=== PATIENT | female | born 1990 | race African-American/Black ===

== ENCOUNTER 2020-06-02 19:55 | Emergency (ER) | payer BC, MEDICAID, OTHER ==
[~2020-06-02] VITALS: Ht 154.9 cm; Wt 62.7 kg
[2020-06-02 19:55] VITALS: BP 150/90
[~2020-06-02 19:55] MED LIST: PSEU120T9 PO; [UNRECOGNIZED DRUG - CODE] PO
[2020-06-02] MEDS ORDERED: DEXAMETHASONE SOD PHOS 10 MG/ML VIAL. PO ONE (20:15)
[2020-06-02] MEDS ORDERED: METH4TAB2 PO (20:46)
--- NOTE | 2020-06-02 20:46 | PHYS DOC ---
Past History Past Medical History: No Pertinent History Past Surgical History: No Surgical History Smoking: Cigarettes, Less than 1pk/day Alcohol Use: None Drug Use: Marijuana Adult General Chief Complaint Chief Complaint: EARACHE/EAR PAIN [facility] HPI Patient is 89-year-old female presents to the emergency room complaining of throat pain that radiates into her left ear. She states the pain in her ear is mostly when she tries to swallow. This started this morning. She has been doing cough drops with some relief at home. She denies any cough, shortness of breath, fever, chills, sweats. She has painful swallowing. She is able to talk and swallow without difficulty. Review of Systems Review of Systems Complete ROS is negative unless otherwise documented in HPI Current Medications Current Medications Current Medications Medications (Trade) Dose Ordered Sig/Petros Start Time Stop Time Status Last Admin Dose Admin Dexamethasone Sodium Phosphate (Decadron) 10 mg 1X ONCE 06/02/20 20:15 06/02/20 20:19 DC 06/02/20 20:27 10 MG Allergies Allergies Allergies Coded Allergies Type Severity Reaction Last Updated Verified No Known Drug Allergies 05/14/15 No Physical Exam Physical Exam General: Awake, alert, NAD. Well Nourished, well hydrated. Cooperative HEENT: Atraumatic, EOMI, PERRL, airway patent, moist oral mucosa, bilateral tonsillar swelling with erythema Neck: Supple, trachea midline Respiratory: CTA bilaterally, normal effort, no wheezing/crackles CV: RRR, no murmur, cap refill <2 GI: Soft, nondistended, nontender, no masses MSK: No obvious deformities Skin: Warm, dry, intact Neuro: A&O x3, speech NL, sensory and motor grossly intact, no focal deficits Psych: Normal affect, normal mood, not suicidal or homicidal Current Patient Data Vital Signs Vital Signs Date Time Temp Pulse Resp B/P (MAP) Pulse Ox O2 Delivery O2 Flow Rate FiO2 06/02/20 19:55 98.6 86 18 150/90 (110) 100 EKG EKG [] Radiology/Procedures Radiology/Procedures [] Heart Score Risk Factors: Risk Factors: DM, Current or recent (<one month) smoker, HTN, HLP, family history of CAD, obesity. Risk Scores: Risk Factors: DM, Current or recent (<one month) smoker, HTN, HLP, family history of CAD, obesity. Course & Med Decision Making Course & Med Decision Making Pertinent Labs and Imaging studies reviewed. (See chart for details) Patient is 30-year-old female presents to the emergency room with tonsillitis. Patient has bilateral swelling of the tonsils. Bilateral tympanic membranes are normal. Strep swab was done and is negative. Patient will be placed on steroids. Patient's test results and vitals while in the ED were fully reviewed and discussed with the patient. Patient is stable and at this time does not need admission to the hospital. We have discussed strict return precautions and the importance of following up with their Primary Care Physician. Patient stated understanding and was given an opportunity to ask any questions. Patient is in agreement with plan. Dragon Disclaimer Dragon Disclaimer This electronic medical record was generated, in whole or in part, using a voice recognition dictation system. Departure Departure: Impression: Primary Impression: Tonsillitis Disposition: 01 DC HOME SELF CARE/HOMELESS Condition: STABLE Referrals: SARITA ROLLE DO (PCP) Patient Instructions: Tonsillitis Scripts Methylprednisolone (MEDROL) 4 Mg Tab.ds.pk 1 PKG PO UD for tonsillitis, #1 PKG Prov: RIGO POOLE MD 06/02/20 RIGO POOLE MD Jun 02, 2020 20:46
== END 2020-06-02 20:50 | disposition home or self-care (01) ==
LOC: ER 19:55
DX: J03.90 Acute tonsillitis, unspecified (principal); F17.210 Nicotine dependence, cigarettes, uncomplicated; F12.10 Cannabis abuse, uncomplicated
CPT/HCPCS: 87070; 87880; 99283; J1100

== ENCOUNTER 2021-07-09 12:43 | Emergency (ER) | payer BC, MEDICAID ==
[~2021-07-09] VITALS: Ht 154.9 cm; Wt 62.7 kg
[~2021-07-09 12:43] MED LIST changes: +METH4TAB2 PO
[2021-07-09] MEDS ORDERED: LABETALOL 20 MG/4 ML DISP.SYRIN. IVP ONE (14:30)
--- NOTE | 2021-07-09 14:41 | PHYS DOC ---
Past History Past Medical History: No Pertinent History Past Surgical History: No Surgical History Smoking: Cigarettes, Less than 1pk/day Alcohol Use: None Drug Use: Marijuana General Adult EDM: Chief Complaint: POST-OP PROBLEM HPI: HPI: 31-year-old female presents with hypertension . Patient did not have elevated blood pressure except for the very end of her . She delivered shortly after they discovered her elevated blood pressure. She did not have elevated blood pressure on discharge from the hospital 1 week ago today. Today, she has swelling of the bilateral lower extremities and her OB sent her to the hospital to evaluate her blood pressure. On arrival it is elevated. Patient denies any other complaints this time. Review of Systems: Review of Systems: Constitutional: Denies fever or chills Eyes: Denies change in visual acuity HENT: Denies nasal congestion or sore throat Respiratory: Denies cough or shortness of breath Cardiovascular: Bilateral lower extremity edema GI: Denies abdominal pain, nausea, vomiting, bloody stools or diarrhea : Denies dysuria Musculoskeletal: Denies back pain or joint pain Integument: Denies rash Neurologic: Denies headache, focal weakness or sensory changes Endocrine: Denies polyuria or polydipsia Lymphatic: Denies swollen glands Psychiatric: Denies depression or anxiety Current Medications: Current Meds: Current Medications Medications (Trade) Dose Ordered Sig/Petros Start Time Stop Time Status Last Admin Dose Admin Labetalol HCl (Normodyne) 10 mg 1X ONCE 07/09/21 14:30 07/09/21 14:34 DC Allergies: Allergies: Allergies Coded Allergies Type Severity Reaction Last Updated Verified No Known Drug Allergies 05/14/15 No Physical Exam: PE: Constitutional: Well developed, well nourished, no acute distress, non-toxic appearance. [] HENT: Normocephalic, atraumatic, bilateral external ears normal, oropharynx moist, no oral exudates, nose normal. [] Eyes: PERRLA, EOMI, conjunctiva normal, no discharge. [] Neck: Normal range of motion, no tenderness, supple, no stridor. [] Cardiovascular: Heart rate regular rhythm, no murmur [] Lungs & Thorax: Bilateral breath sounds clear to auscultation [] Abdomen: Bowel sounds normal, soft, no tenderness, no masses, no pulsatile masses. [] Skin: Warm, dry, no erythema, no rash. [] Back: No tenderness, no CVA tenderness. [] Extremities: No tenderness, no cyanosis, no clubbing, ROM intact, 2+ nonpitting edema of the bilateral lower extremities. [] Neurologic: Alert and oriented X 3, normal motor function, normal sensory function, no focal deficits noted. [] Psychologic: Affect normal, judgement normal, mood normal. [] EKG: EKG: [] Radiology/Procedures: Radiology/Procedures: [] Heart Score: C/O Chest Pain: N/A Risk Factors: Risk Factors: DM, Current or recent (<one month) smoker, HTN, HLP, family history of CAD, obesity. Risk Scores: Score 0 - 3: 2.5% MACE over next 6 weeks - Discharge Home Score 4 - 6: 20.3% MACE over next 6 weeks - Admit for Clinical Observation Score 7 - 10: 72.7% MACE over next 6 weeks - Early Invasive Strategies Course & Med Decision Making: Course & Med Decision Making Pertinent Labs and Imaging studies reviewed. (See chart for details) The patient's blood pressure was elevated. She was given hydralazine 10 mg IV. This improved her blood pressure significantly. I also gave her 40 mg of Lasix IV. I will discharge her with 4 additional days of Lasix 20 mg daily and nifedipine extended release as oral hydralazine is not recommended as a single treatment. She will follow-up with her OB no later than Sunday. She is stable for discharge at this time. [] Jessica Disclaimer: Jessica Disclaimer: This electronic medical record was generated, in whole or in part, using a voice recognition dictation system. Departure Departure: Impression: Primary Impression: hypertension Disposition: HOME / SELF CARE / HOMELESS Condition: STABLE Referrals: PCP,NO (PCP) Patient Instructions: Hypertension, [id number] Scripts Nifedipine (NIFEDIPINE ER) 30 Mg Tab.er.24 1 TAB PO DAILY for hypertension for 14 Days, #14 TAB 1 Refill Prov: BROOKLYNN DELACRUZ DO 07/09/21 BROOKLYNN DELACRUZ DO Jul 09, 2021 14:41
[2021-07-09] MEDS: hydrALAZINE 20 MG/ML VIAL. IV ONE ×2 (15:26→15:36)
[2021-07-09 15:29] LABS: BASO # 0.1 x10^3/uL (0.0-0.2); BASO % 1 % (0-3); EOS # 0.1 x10^3/uL (0.0-0.7); EOS % 1 % (0-3); HEMOGLOBIN 12.6 g/dL (12.0-15.5); LYMPH # 4.4 x10^3/uL (1.0-4.8); LYMPH % 39 % (24-48); MEAN CORPUSCULAR HEMOGLOBIN 30 pg (25-35); MEAN CORPUSCULAR HGB CONC 33 g/dL (31-37); MEAN CORPUSCULAR VOLUME 92 fL (79-100); MONO # 0.8 x10^3/uL (0.0-1.1); MONO % 8 % (0-9); NEUT # 5.8 x10^3uL (1.8-7.7); NEUT % 51 % (31-73); PLATELET COUNT 289 x10^3/uL (140-400); RED BLOOD COUNT 4.13 x10^6/uL (3.50-5.40); RED CELL DISTRIBUTION WIDTH 14.3 % (11.5-14.5); WHITE BLOOD COUNT 11.3 x10^3/uL (4.0-11.0)
[2021-07-09] MEDS ORDERED: FUROSEMIDE 40 MG/4 ML VIAL IVP ONE (15:30)
[2021-07-09] MEDS ORDERED: hydrALAZINE 20 MG/ML VIAL. IV ONE (15:30)
[2021-07-09 15:37] LABS: CALCIUM 8.4 mg/dL (8.5-10.1); CREATININE 0.7 mg/dL (0.6-1.0); GFR 117.3; POTASSIUM 3.9 mmol/L (3.5-5.1)
[2021-07-09 15:41] LABS: BACTERIA,URINE 0 /HPF (0-FEW); BILIRUBIN,URINE NEG (NEG); CLARITY,URINE CLEAR; COLOR,URINE YELLOW; GLUCOSE,URINE NEG (NEG); NITRITE,URINE NEG (NEG); RBC,URINE 0 /HPF (0-2); SQUAMOUS EPITHELIAL CELL,UR OCC /LPF; UROBILINOGEN,URINE 0.2 mg/dL (0.2 mg/dL); WBC,URINE 0 /HPF (0-4)
[2021-07-09 15:43] LABS: ALBUMIN 2.8 g/dL (3.4-5.0); ALBUMIN/GLOBULIN RATIO 0.7 (1.0-1.7); TOTAL BILIRUBIN 0.2 mg/dL (0.2-1.0)
[2021-07-09] MEDS ORDERED: NIFE30TA95 PO (17:01)
[2021-07-09] MEDS ORDERED: FURO-69 PO (17:02)
[2021-07-09 17:15] VITALS: BP 145/86
== END 2021-07-09 17:16 | disposition home or self-care (01) ==
LOC: ER 12:43
DX: O16.5 Unspecified maternal hypertension, complicating the puerperium (principal); F17.210 Nicotine dependence, cigarettes, uncomplicated
CPT/HCPCS: 36415; 80053; 81001; 85025; 96374; 96375; 99285; J0360; J1940

== ENCOUNTER 2021-08-04 22:17 | Emergency (ER) | payer BC, MEDICAID ==
[~2021-08-04] VITALS: Ht 154.9 cm; Wt 68.0 kg
[~2021-08-04 22:17] MED LIST changes: +FURO-69 PO; +NIFE30TA95 PO
[2021-08-04 22:28] VITALS: BP 121/90
[2021-08-04] MEDS ORDERED: IBUPROFEN 800 MG TABLET. PO ONE (23:00)
[2021-08-04] MEDS ORDERED: CEPHALEXIN 250 MG CAPSULE PO ONE (23:00)
[2021-08-05] MEDS ORDERED: ENOXAPARIN ** NOTE DOSE ** SYRINGE SQ ONE (00:30)
--- NOTE | 2021-08-05 00:32 | PHYS DOC ---
Past History Past Medical History: No Pertinent History Past Surgical History: No Surgical History Smoking: Cigarettes, Less than 1pk/day Alcohol Use: Occasionally Drug Use: Marijuana Adult General Chief Complaint Chief Complaint: UPPER EXTREMITY SWELLING HPI HPI The patient is a 31-year-old female who is otherwise healthy. She presents for evaluation of redness, mild swelling and discomfort affecting the dorsal aspect of her right hand radiating down over the dorsal and volar right distal forearm. Symptoms had onset today when she woke up from sleep. Symptoms occur in the setting of a tiny burn to the dorsal right hand sustained about a week ago; this has been healing well until today. No associated fevers, vomiting, weakness, numbness or tingling to the affected distal right arm or hand. Patient is alert and pleasantly and appropriately interactive and in no acute distress with appropriate vital signs upon initial evaluation here in the emergency department. Review of Systems Review of Systems A 12 point review of systems was completed and was negative except where noted in HPI above. Current Medications Current Medications Current Medications Medications (Trade) Dose Ordered Sig/Petros Start Time Stop Time Status Last Admin Dose Admin Cephalexin HCl (Keflex) 500 mg 1X ONCE 08/04/21 23:00 08/04/21 23:01 DC 08/04/21 23:15 500 MG Ibuprofen (Motrin) 800 mg 1X ONCE 08/04/21 23:00 08/04/21 23:01 DC 08/04/21 23:15 800 MG Allergies Allergies Allergies Coded Allergies Type Severity Reaction Last Updated Verified No Known Drug Allergies 08/04/21 No Physical Exam Physical Exam 31-year-old female appearing nontoxic and in no acute distress. Head is normocephalic and atraumatic. Neck is supple and nontender. Oropharynx is moist. Lungs are clear to auscultation at all stations. There is a normal S1 and S2 without rubs or gallops and capillary refill is appropriate, less than 2 seconds globally. Abdomen is soft, nontender and nondistended. Skin is warm and dry without cyanosis, clubbing or edema. Psychiatrically, the patient demonstrates appropriate mood and affect and is alert. Evaluation of the right upper extremity is remarkable for mild erythema, warmth and tenderness to palpation over the dorsal right hand and the volar and dorsal aspects of the distal right forearm. Examination is most consistent with a mild cellulitis. There is a transversely oriented approximately 2 cm linear healing burn to the dorsal right hand which is likely the source for infection. No joint irritability to any joint of the right upper extremity. Right upper extremity is neurovascularly intact distally with strength 5 out of 5, sensation intact to light touch in all nerve distributions, radial pulse 2+, capillary refill less than 2 seconds, hand warm and well-perfused. No dependent peripheral edema distally. Current Patient Data Vital Signs Vital Signs Date Time Temp Pulse Resp B/P (MAP) Pulse Ox O2 Delivery O2 Flow Rate FiO2 08/04/21 22:28 97.0 100 20 121/90 (100) 99 Lab Results Laboratory Tests Test 08/04/21 23:09 D-Dimer (Luiza) 1.65 mg/L (0.00-0.50) H EKG EKG [] Radiology/Procedures Radiology/Procedures [] Heart Score C/O Chest Pain: No Risk Factors: Risk Factors: DM, Current or recent (<one month) smoker, HTN, HLP, family history of CAD, obesity. Risk Scores: Risk Factors: DM, Current or recent (<one month) smoker, HTN, HLP, family history of CAD, obesity. Course & Med Decision Making Course & Med Decision Making History and examination are most compatible with a mild right upper extremity cellulitis, probably with onset due to a break in the skin surface from a healing burn to the patient's dorsal right hand. Tetanus is up-to-date per patient. Keflex and ibuprofen given. D-dimer elevated, probably because of acute infection but cannot fully exclude the possibility of DVT so will give a dose of Lovenox and have the patient return tomorrow during the daytime for a right upper extremity ultrasound. We will prescribe Keflex and ibuprofen. Patient understands that if he feels worse instead of better or develops other new symptoms of concern that she should return to the emergency department immediately for reevaluation. All questions are answered. Dragon Disclaimer Dragon Disclaimer This electronic medical record was generated, in whole or in part, using a voice recognition dictation system. Departure Departure: Impression: Primary Impression: Cellulitis of right arm Disposition: HOME / SELF CARE / HOMELESS Condition: IMPROVED Patient Instructions: Cellulitis Additional Instructions: Return to the emergency department tomorrow during business hours later today (08/05/2021) to have an ultrasound of your right arm done to rule out a blood clot. It is most likely that you have a mild soft tissue infection called cellulitis affecting your right hand and forearm. We have prescribed an antibiotic called Keflex; take every 6 hours for the next 10 days to treat the infection. Take two 325mg Tylenol pills every 6 hours as needed for discomfort. Return to the emergency department right away for worsening symptoms of any kind or with any other new symptoms of concern. Scripts Acetaminophen (TYLENOL) 325 Mg Tablet 650 MG PO QID for pain, #50 TAB Prov: SHWETA MENDOZA MD 08/05/21 Cephalexin (KEFLEX) 500 Mg Capsule 1 CAP PO QID for cellulitis for 10 Days, #40 CAP Prov: SHWETA MENDOZA MD 08/05/21 SHWETA MENDOZA MD Aug 05, 2021 00:32
[2021-08-05] MEDS ORDERED: ACET325T9 PO (00:44)
[2021-08-05] MEDS ORDERED: CEPH500C PO (00:44)
== END 2021-08-05 00:49 | disposition home or self-care (01) ==
LOC: ER 22:17
DX: L03.113 Cellulitis of right upper limb (principal); F17.210 Nicotine dependence, cigarettes, uncomplicated
CPT/HCPCS: 36415; 85379; 96372; 99283; J1650

== ENCOUNTER 2021-08-05 15:04 | Emergency (ER) | payer BC, MEDICAID ==
[~2021-08-05] VITALS: Ht 154.9 cm; Wt 68.0 kg
[~2021-08-05 15:04] MED LIST changes: +ACET325T9 PO; +CEPH500C PO
[2021-08-05 15:22] VITALS: BP 121/90
--- NOTE | 2021-08-05 15:49 | RAD ---
EXAM: Right upper extremity venous Doppler. HISTORY: Right upper extremity pain/swelling. COMPARISON: None. FINDINGS: Grayscale and Doppler analysis of the right upper extremity deep venous system was performe d with graded compression and augmentation. The internal jugular, subclavian, axillary, brachial, bas ilic, cephalic, radial and ulnar veins were assessed. There is no evidence of deep venous thrombosis. IMPRESSION: 1. No evidence of deep venous thrombosis. Electronically signed by: Anali Barba MD (08/05/2021 3:46 PM) [facility]
--- NOTE | 2021-08-05 16:07 | PHYS DOC ---
Past History Past Medical History: No Pertinent History Past Surgical History: No Surgical History Smoking: Cigarettes, Less than 1pk/day Alcohol Use: Occasionally Drug Use: Marijuana General Adult EDM: Chief Complaint: OTHER COMPLAINTS HPI: HPI: 31 yo F past medical history of " hypertension" (is currently 4 weeks /not breast-feeding), presents to the ED requesting a right upper extremity venous duplex ultrasound to evaluate for deep venous thrombosis. Pt was seen overnight in the ed and treated for cellulitis of the right forearm after patient stated burn to the dorsum of her right dominant hand (top of the oven when pulling out a cook). Patient was prescribed Keflex and Tylenol. Patient does not believe she was bit by any bugs. Has filled her antibiotic and taken 1 tablet. Reports vaccines are up-to-date including her tetanus. No known history of MRSA-Is not immunocompromised and does not work in healthcare. Is no longer on antihypertensives. EMR was reviewed and patient had an elevated D- dimer of 1.65-able to PERC out due to heart rate of 100. Review of Systems: Review of Systems: Constitutional: Denies fever or chills Eyes: Denies change in visual acuity HENT: Denies nasal congestion or sore throat Respiratory: Denies cough or shortness of breath Cardiovascular: Denies chest pain or edema GI: Denies nausea or vomiting : Denies dysuria or vaginal bleeding Musculoskeletal: Denies back pain or joint pain Integument: Denies blistering lesions or diaphoresis Neurologic: Denies focal weakness or sensory changes Psychiatric: Denies depression or anxiety Allergies: Allergies: Allergies Coded Allergies Type Severity Reaction Last Updated Verified No Known Drug Allergies 08/04/21 No Physical Exam: PE: Constitutional: Well developed, well nourished, no acute distress, non-toxic appearance. HENT: Normocephalic, atraumatic, Eyes: EOMI, conjunctiva normal, no discharge. Neck: Normal range of motion, supple, Cardiovascular: S1/2 present, regular rhythm Lungs & Thorax: Speaking in full sentences, bilateral equal chest rise, no tachypnea or increased work of breathing Skin: Warm, dry, 2 cm scar over distal dorsal hand with uniform erythema that extends from the scar of the burn over the dorsum of the hand into the wrist and distal arm-rash is not circumferential but is warm, equal radial pulses, rashes that extends to ventral aspect of hand, no flexor posturing digits-digits with no associated rash Extremities: No tenderness, no cyanosis, patient with full range of motion right wrist and hand Neurologic: Alert and oriented X 3, normal motor function, normal sensory function, no focal deficits noted. [] Psychologic: Affect normal, judgement normal, mood normal. [] Current Patient Data: Vital Signs: Vital Signs Date Time Temp Pulse Resp B/P (MAP) Pulse Ox O2 Delivery O2 Flow Rate FiO2 08/05/21 15:22 98.2 80 16 121/90 (100) 98 EKG: EKG: [] Radiology/Procedures: Radiology/Procedures: IMAGING REPORT Signed PATIENT: MORENO AMAYA ACCOUNT: [id number] : 1990 LOCATION: ER AGE: 31 SEX: F EXAM STATUS: REG ER ORD. PHYSICIAN: TIN HOLLIS DO REASON: arm swelling PROCEDURE: VENOUS UPPER EXTREMITY RIGHT EXAM: Right upper extremity venous Doppler. HISTORY: Right upper extremity pain/swelling. COMPARISON: None. FINDINGS: Grayscale and Doppler analysis of the right upper extremity deep venous system was performed with graded compression and augmentation. The internal jugular, subclavian, axillary, brachial, basilic, cephalic, radial and ulnar veins were assessed. There is no evidence of deep venous thrombosis. IMPRESSION: 1. No evidence of deep venous thrombosis. Electronically signed by: Anali Barba MD (08/05/2021 3:46 PM) [facility] DICTATED AND SIGNED BY: ASHUTOSH BARBA MD DATE: 08/05/21 1546 CC: PCP,NO; TIN HOLLIS DO ~MTH0 0 Heart Score: C/O Chest Pain: No Risk Factors: Risk Factors: DM, Current or recent (<one month) smoker, HTN, HLP, family history of CAD, obesity. Risk Scores: Score 0 - 3: 2.5% MACE over next 6 weeks - Discharge Home Score 4 - 6: 20.3% MACE over next 6 weeks - Admit for Clinical Observation Score 7 - 10: 72.7% MACE over next 6 weeks - Early Invasive Strategies Course & Med Decision Making: Course & Med Decision Making Pertinent Labs and Imaging studies reviewed. (See chart for details) Concern for cellulitis of the right dorsal hand and wrist, compliant with Keflex. Patient reports rash has decreased in size from initial evaluation with Dr. Olivas. Patient full range of motion of right upper extremity. Reports her vaccines including tetanus are updated. Blood pressure is normal range. Ultrasound ordered due to elevated D-dimer. Ultrasound with no evidence of DVT which is consistent with patient's physical exam. Will discharge home with strict ED return precautions were given for worsening rash, fever or decreased range of motion. Encouraged urgent outpatient follow-up with PMD for reevaluation and routine care. Life-threatening processes were considered but are low suspicion at this time, given history, physical exam and ED workup. Pt was educated on all prescription medications and adverse effects. All patient's questions were answered and pt was stable at time of discharge. Life/limb-threatening differential includes but is not limited to, trauma (fracture, dislocation, laceration, compartment syndrome, tendon or ligament injury), neurovascular injury or deficitcva/tia, infection (osteomyelitis, abscess, cellulitis, septic arthritis, necrotizing fasciitis), deep vein thrombosis, renal/cardiac/liver disease, medication adverse effect, lymphedem a/anasarca, vascular insufficiency or malignancy, I have spoken with the patient and/or caregivers. I explained the patient's condition, diagnoses and treatment plan based on the information available to me at this time. I have answered the patient and/or caregiver's questions and addressed any concerns. The patient and/or caregivers have a good understanding of patient's diagnosis, condition and treatment plan as can be expected at this point. Vital signs have been stable. Patient's condition is stable and appropriate for discharge from the emergency department. Patient will pursue further outpatient evaluation with primary care physician or other designated or consulting physician as outlined in the discharge instructions. The patient and/or caregivers are agreeable to this plan of care and follow-up instructions have been explained in detail. The patient and/or caregivers have received these instructions in written form and have expressed an understanding of the discharge instructions. The patient and/or caregivers are aware that any significant change of condition or worsening of symptoms should prompt immediate return to this or the closest emergency department or call to 911. Jessica Disclaimer: Jessica Disclaimer: This electronic medical record was generated, in whole or in part, using a voice recognition dictation system. Departure Departure: Impression: Primary Impression: Cellulitis of right arm Disposition: HOME / SELF CARE / HOMELESS Condition: STABLE Referrals: PCP,NO (PCP) Follow-up with your primary care physician in 24 to 48 hours OR FOLLOW UP WITH FAMILY MEDICINE: [address] [place] [address] Patient Instructions: Cellulitis Additional Instructions: [facility] FOR [facility] E [facility]NAGEMENT WITHIN THE NEXT 7 DAYS Appointments may be made with Hitesh Acuña MD, Suraj Agarwal MD, Kwaku Johnson MD or Dina Quinn MD, by calling [phone] EMERGENCY DEPARTMENT GENERAL DISCHARGE INSTRUCTIONS Thank you for coming to [facility] (ED) today and trusting us with you care. We trust that you had a positivie experience in our Emergency Department. If you wish to speak to the department management, you may call the director at [phone]. YOUR FOLLOW UP INSTRUCTIONS ARE FOLLOWS: 1. Do you have a private Doctor? If you do not have a private doctor, please ask for a resource list of physicians or clinics that may be able to assist you with follow up care. 2. The Emergency Physician has interpreted your x-rays. The X-Ray specialist will also review them. If there is a change in the findings, you will be notified in 48 hours when at all possible. 3. A lab test or culture has been done, your results will be reviewed and you will be notified if you need a change in treatment. ADDITIONAL INSTRUCTIONS AND INFORMATION: 1. Your care today has been supervised by a physician who is specially trained in emergency care. Many problems require more than one evaluation for a complete diagnosis and treatment. We recommend that you schedule your follow up appointment as recommended to ensure complete treatment of you illness or injury. If you are unable to obtain follow up care and continue to have a problem, or if your condition worsens, we recommend that you return to the ED. 2. We are not able to safely determine your condition over the phone nor are we able to give sound medical advice over the phone. For these safety reasons, if you call for medical advice we will ask you to come to the ED for further evaluation. 3. If you have any questions regarding these discharge instructions please call the ED at [phone]. SAFETY INFORMATION: In the interest of safety, wellness, and injury prevention; we encourage you to wear your sealbelt, if you smoke; quite smoking, and we encourage family to use a protective helmet for bicycling and other sporting events that present an increased risk for head injury. IF YOUR SYMPTOMS WORSEN OR NEW SYMPTOMS DEVELOP, OR YOU HAVE CONCERNS ABOUT YOUR CONDITION; OR IF YOUR CONDITION WORSENS WHILE YOU ARE WAITING FOR YOUR FOLLOW UP APPOINTMENT; EITHER CONTACT YOUR PRIMARY CARE DOCTOR, THE PHYSICIAN WHOSE NAME AND NUMBER YOU WERE GIVEN, OR RETURN TO THE ED IMMEDIATELY. [facility] DO Aug 05, 2021 16:07
== END 2021-08-05 17:06 | disposition home or self-care (01) ==
LOC: ER 15:04
DX: O99.73 Diseases of the skin and subcutaneous tissue complicating the puerperium (principal); L03.113 Cellulitis of right upper limb; O99.335 Smoking (tobacco) complicating the puerperium; Z98.890 Other specified postprocedural states
CPT/HCPCS: 93971; 99284